=== PATIENT | male | born 1945 | race Caucasian/White ===

== ENCOUNTER 2021-08-15 10:52 | Emergency (ER) | payer MEDICARE ==
[2021-08-15 11:02] VITALS: BP 152/76
[2021-08-15] MEDS ORDERED: PROPARACAINE 0.5% OPHTH DROPS 15 ML LEFTEYE STA (11:19)
--- NOTE | 2021-08-15 11:22 | ED Physician Documentation ---
PD HPI OPHTHO - Stated complaint Stated Complaint: LT EYE PAIN - Chief complaint Chief Complaint: Heent - History obtained from History obtained from: Patient - History of Present Illness Timing - onset: Yesterday Timing - duration: Days (1) Timing - details: Abrupt onset, Still present Location: Left Quality / character: Aching, Sharp Associated symptoms: Redness, Tearing, Matting (some this morning), FB sensation. No: Swelling, Decreased vision Contributing factors: FB (he was cleaning/fixing weed whacker and hit the trigger with it on table, and piece of material went into left eye. He flushed it but continues to feel FB sensation. He hoped it would clear by this AM but feeling even worse with crusting.). No: Wears contacts Similar symptoms before: Has not had sx before Recently seen: Not recently seen Review of Systems Constitutional: denies: Fever, Chills Eyes: reports: Decreased vision (seems watery and blurred from that.), Irritation. denies: Loss of vision, Photophobia Nose: denies: Rhinorrhea / runny nose, Congestion Throat: denies: Sore throat Respiratory: denies: Cough PD PAST MEDICAL HISTORY - Past Medical History Cardiovascular: None Respiratory: None HEENT: None - Present Medications Home Medications: Ambulatory Orders Medication Instructions Recorded Confirmed Erythromycin Base [Erythromycin 1 applic OP QID #3.5 gm 08/15/21 Ophthalmic Ointment] - Allergies Allergies/Adverse Reactions: Allergies Allergy/AdvReac Type Severity Reaction Status Date / Time Iodinated Contrast Media Allergy Anaphylaxis Verified 08/15/21 11:03 PD ED PE NORMAL - Vitals Vital signs reviewed: Yes - General General: Alert and oriented X 3, No acute distress (he does seem some uncomfortable with lights on. Left eye with hyperemia and some crusting at lid margin. No direct nor consensual light pain. ), Well developed/nourished - HEENT HEENT: PERRL, EOMI, Other (no FB seen in eye. Did feel better with proparacaine. dye staining showed a small 2 mm superficial abtrasion just lateral of center. No FB seen including lid eversion. ) - Neck Neck: Supple, no meningeal sign, No adenopathy Results - Vitals Vitals: Vital Signs - 24 hr 08/15/21 10:59 Temperature 36.7 C Heart Rate 62 Respiratory 16 Rate Blood Pressure 152/76 H O2 Saturation 99 Oxygen O2 Source Room air Departure - Departure Disposition: 01 Home, Self Care Clinical Impression: Corneal abrasion Qualifiers: Encounter type: initial encounter Laterality: left Qualified Code(s): S05.02XA - Injury of conjunctiva and corneal abrasion without foreign body, left eye, initial encounter Record reviewed to determine appropriate education?: Yes Instructions: ED Eye Injury Corneal Abrasion Prescriptions: Erythromycin Base [Erythromycin Ophthalmic Ointment] 1 applic OP QID #3.5 gm Comments: There is a corneal abrasion which is appearing superficial and should heal up within the next day or 2 pretty readily. You can use erythromycin ointment 4 times daily to help with coating the surface and more comfort as well as treating in case of early infection. You can also use soothing drops such as artificial tears or Lacri-Lube etc. These are [id number]. Tylenol or ibuprofen if needed for pains. Recheck if not improved well over the next couple of days and return if worse. Discharge Date/Time: 08/15/21 11:50
[2021-08-15] MEDS ORDERED: ACETAMINOPHEN 325 MG TABLET PO STA (11:36)
[2021-08-15] MEDS ORDERED: ERYTHROMYCIN OPHTH OINT 1 GM TUBE LEFTEYE STA (11:36)
== END 2021-08-15 11:50 | disposition home or self-care (01) ==
LOC: ED 10:52
DX: S05.02XA Injury of conjunctiva and corneal abrasion without foreign body, left eye, initial encounter (principal); W45.8XXA Other foreign body or object entering through skin, initial encounter; Y93.89 Activity, other specified; Y92.008 Other place in unspecified non-institutional (private) residence as the place of occurrence of the external cause
CPT/HCPCS: 99282; A9270; J3490